=== PATIENT | male | born 1985 | race Caucasian/White ===

== ENCOUNTER 2016-03-15 10:27 | Emergency (ER) | payer BC, OTHER ==
[~2016-03-15] VITALS: Ht 172.7 cm; Wt 57.0 kg
[~2016-03-15 10:27] MED LIST: BUPR-83 PO; BUSP15TA70 PO; HYDR-3126 PO
[2016-03-15 10:29] VITALS: TEMP 36.8; Ht 172.7 cm; Wt 57.0 kg
[2016-03-15] MEDS ORDERED: ONDANSETRON INJ 2 MG/ML 2 ML VIAL IV STA (10:54)
[2016-03-15 11:17] LABS: BASO % 0.4 %; BASO ABS # 0.02 K/uL (0-0.2); COMPLETE YES; EOS % 6.9 %; HEMATOCRIT 41.2 % (42-52); LYMPH % 28.8 %; MEAN CORPUSCULAR HEMOGLOBIN 28.5 pg (25-34); MEAN CORPUSCULAR HGB CONC 35.7 g/dl (32-36); MEAN PLATELET VOLUME 8.7 fL (7.4-10.4); MONO % 5.8 %; NEUT % 58.1 %; PLATELET COUNT 211 K/uL (130-400); RED BLOOD COUNT 5.15 M/uL (4.7-6.1); WHITE BLOOD COUNT 4.52 K/uL (4.8-10.8)
[2016-03-15 11:38] LABS: URINE APPEARANCE CLEAR (CLEAR); URINE COLOR YELLOW; URINE SPECIFIC GRAVITY 1.003 (1.000-1.030); ZZUR CULT IF INDIC CLEAN CATCH NO
[2016-03-15 11:39] LABS: ALT/SGPT 24 U/L (12-78); BLOOD UREA NITROGEN 10 mg/dl (7-18); BUN/CREATININE RATIO 9.3 (10-20); CARBON DIOXIDE 26 mmol/L (21-32); CHLORIDE 104 mmol/L (98-107); GLUCOSE 115 mg/dl (70-99); POTASSIUM 4.1 mmol/L (3.5-5.1); SODIUM 141 mmol/L (136-145)
[2016-03-15 11:39] LABS: MANUAL MICROSCOPIC REQUIRED? NO; REVIEW REQ? NO; URINE BILIRUBIN NEG (NEG); URINE NITRITE NEG (NEG); UROBILINOGEN NEG (NEG)
[2016-03-15 11:42] LABS: ALKALINE PHOSPHATASE 83 U/L (45-117); AST/SGOT 23 U/L (15-37)
--- NOTE | 2016-03-15 11:42 | DIAGNOSTIC IMAGING REPORT ---
PA CHEST WITH ABDOMINAL SERIES CLINICAL HISTORY: Left lower quadrant abdominal pain. Constipation. FINDINGS: A PA chest radiograph is obtained. No prior studies are available for comparison at the time of dictation. The cardiomediastinal silhouette is unremarkable. The lungs appear hyperinflated, likely due to good inspiratory result. The lungs and pleural spaces are clear. No pneumothorax is seen. The bony thorax is grossly intact. Supine and erect abdominal radiographs are obtained. No prior studies are available for comparison at the time of dictation. There is a nonobstructed abdominal bowel gas pattern noting moderate colonic fecal retention. No intraperitoneal free air is seen. There are no abnormal abdominal calcifications. The lumbosacral spine and bony pelvis appear intact. IMPRESSION: 1. No active disease in the chest. 2. Nonobstructed abdominal bowel gas pattern noting moderate colonic fecal retention. Electronically signed by: Philippe Hamilton M.D. 03/15/2016 11:40 AM Dictated Date/Time: 03/15/2016 11:39 AM
--- NOTE | 2016-03-15 14:49 | DIAGNOSTIC IMAGING REPORT ---
ULTRASOUND TESTES AND SCROTUM CLINICAL HISTORY: Scrotal pain. COMPARISON STUDY: No priors. TECHNIQUE: Real-time, grayscale, and color Doppler sonography of the testes and scrotum is performed. Images are reviewed in the transverse and longitudinal planes. FINDINGS: The testes are normal in size and homogeneous in echotexture. The right testis measures 4.6 x 2.5 x 3.1 cm and the left testis measures 4.3 x 2.3 x 3.6 cm. No intratesticular mass is seen. Testicular blood flow is normal and symmetric. Normal Doppler waveforms are identified in both testes. The epididymal heads are normal in appearance. The right epididymal head measures 1.1 cm in length and the left epididymal head measures 1.1 cm in length. No varicocele or hydrocele is seen. IMPRESSION: Unremarkable sonographic assessment of the testes and scrotum. Electronically signed by: Philippe Hamilton M.D. 03/15/2016 2:47 PM Dictated Date/Time: 03/15/2016 2:45 PM
--- NOTE | 2016-03-15 15:03 | EMERGENCY ROOM VISIT NOTE ---
History First contact with patient: 10:40 Chief Complaint: URINARY SYMPTOMS Stated Complaint: KIDNEY PAIN, FREQ. URINATION, NAUSEA Nursing Triage Summary: pt reports constant penile burning and testicular pain ,pt denies pain or burning with urination , just urinary freq. denies ;use of restrictive device on penis [place] PAC aware History of Present Illness The patient is a 30 year old male who presents to the Emergency Room with complaints of urinary frequency that has been going on for several weeks. The patient denies any hematuria but admits to urgency and dysuria. The patient denies any penile discharge. The patient does admit that on the underside of the head of the penis it looks blue. He also admits to a throbbing pain in his scrotum which also has been going on for several weeks. The patient states he had chlamydia many years ago. He has been in a monogamous relationship with his current partner for over 2 years. She was just at her usability specialist and had complete STD testing and was negative. He does not think he has any STD. Now the patient states he has bilateral low back pain and some nausea but denies any vomiting. The patient also states that he has problems with constipation. He had a bowel movement yesterday but it was small. The patient denies any diarrhea. The patient then also started listing off multiple other complaints. He does have a appointment with his family physician, Dr. Duenas in 3 weeks. He states that he's had an itchy rash intermittently on his lower legs and on the back of his head for a year. He has not done any unnq-[id number] treatment for this. He also states that he had a prior fungal infection which she used to treat with selenium shampoo. He states that this is different. The patient also states that he has some generalized abdominal pain and would like tested for hepatitis. He states he's had problems with his liver and stomach for years. He was never diagnosed with hepatitis. 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 He has been clean for 2 years. Review of Systems 10 system review was performed and was negative unless stated otherwise history of present illness. Social History Smoking Status: Current Every Day Smoker Alcohol Use: occasionally Drug Use: heroin, other Housing Status: lives with significant other Occupation Status: unemployed Current/Historical Medications Scheduled Buprenorphine Hcl-Naloxone Hcl (Zubsolv), 5.7 MG PO BID Allergies Coded Allergies: No Known Allergies (Unverified , 03/15/16) Physical Exam Vital Signs Date Time Temp Pulse Resp B/P Pulse Ox O2 Delivery O2 Flow Rate FiO2 03/15/16 14:07 63 18 117/82 99 Room Air 03/15/16 12:32 87 18 116/80 99 Room Air 03/15/16 10:29 36.8 79 16 138/88 100 Room Air Physical Exam GENERAL: Patient is alert oriented in no acute distress. Most of his body is covered with tattoos. MENTAL Status: Alert and oriented 3. MOUTH: Mucosa is moist NECK: Supple, no lymphadenopathy noted. No carotid bruits noted. LUNGS: Clear auscultation without wheezes rales or rhonchi. CARDIAC: Regular rate and rhythm without murmur. Pulses is full and equal throughout. BACK: No CVA tenderness noted. ABDOMEN: Positive bowel sounds all 4 quadrants. Soft, mild tenderness palpation in the left lower quadrant otherwise nontender to palpation without organomegaly or masses. GENITALIA: Penis without lesion. No discharge noted. There is no discoloration of the head of the penis. Scrotum without erythema or edema. Testicles without masses or tenderness. SKIN: The patient has a small patch of erythema at the base of his skull without any vesicles or pustules noted. He has 2 small areas of raised erythema and dry skin noted on his anterior lower legs. Remainder skin without any rashes. Medical Decision & Procedures ER Provider Diagnostic Interpretation: PA CHEST WITH ABDOMINAL SERIES CLINICAL HISTORY: Left lower quadrant abdominal pain. Constipation. FINDINGS: A PA chest radiograph is obtained. No prior studies are available for comparison at the time of dictation. The cardiomediastinal silhouette is unremarkable. The lungs appear hyperinflated, likely due to good inspiratory result. The lungs and pleural spaces are clear. No pneumothorax is seen. The bony thorax is grossly intact. Supine and erect abdominal radiographs are obtained. No prior studies are available for comparison at the time of dictation. There is a nonobstructed abdominal bowel gas pattern noting moderate colonic fecal retention. No intraperitoneal free air is seen. There are no abnormal abdominal calcifications. The lumbosacral spine and bony pelvis appear intact. IMPRESSION: 1. No active disease in the chest. 2. Nonobstructed abdominal bowel gas pattern noting moderate colonic fecal retention. Electronically signed by: Philippe Hamilton M.D. 03/15/2016 11:40 AM Dictated Date/Time: 03/15/2016 11:39 AM ULTRASOUND TESTES AND SCROTUM CLINICAL HISTORY: Scrotal pain. COMPARISON STUDY: No priors. TECHNIQUE: Real-time, grayscale, and color Doppler sonography of the testes and scrotum is performed. Images are reviewed in the transverse and longitudinal planes. FINDINGS: The testes are normal in size and homogeneous in echotexture. The right testis measures 4.6 x 2.5 x 3.1 cm and the left testis measures 4.3 x 2.3 x 3.6 cm. No intratesticular mass is seen. Testicular blood flow is normal and symmetric. Normal Doppler waveforms are identified in both testes. The epididymal heads are normal in appearance. The right epididymal head measures 1.1 cm in length and the left epididymal head measures 1.1 cm in length. No varicocele or hydrocele is seen. IMPRESSION: Unremarkable sonographic assessment of the testes and scrotum. Electronically signed by: Philippe Hamilton M.D. 03/15/2016 2:47 PM Laboratory Results 03/15/16 11:00 Red Blood Count 5.15, Mean Corpuscular Volume 80.0, Mean Corpuscular Hemoglobin 28.5, Mean Corpuscular Hemoglobin Concent 35.7, Mean Platelet Volume 8.7, Neutrophils (%) (Auto) 58.1, Lymphocytes (%) (Auto) 28.8, Monocytes (%) (Auto) 5.8, Eosinophils (%) (Auto) 6.9, Basophils (%) (Auto) 0.4, Neutrophils # (Auto) 2.63, Lymphocytes # (Auto) 1.30, Monocytes # (Auto) 0.26, Eosinophils # (Auto) 0.31, Basophils # (Auto) 0.02 03/15/16 11:00 Test 03/15/16 00:00 03/15/16 11:00 Urine Color YELLOW Urine Appearance CLEAR (CLEAR) Urine pH 5.0 (4.5-7.5) Urine Specific Davidson 1.003 (1.000-1.030) Urine Protein NEG (NEG) Urine Glucose (UA) NEG (NEG) Urine Ketones NEG (NEG) Urine Occult Blood NEG (NEG) Urine Nitrite NEG (NEG) Urine Bilirubin NEG (NEG) Urine Urobilinogen NEG (NEG) Urine Leukocyte Esterase NEG (NEG) White Blood Count 4.52 K/uL (4.8-10.8) Red Blood Count 5.15 M/uL (4.7-6.1) Hemoglobin 14.7 g/dL (14.0-18.0) Hematocrit 41.2 % (42-52) Mean Corpuscular Volume 80.0 fL (80-100) Mean Corpuscular Hemoglobin 28.5 pg (25-34) Mean Corpuscular Hemoglobin Concent 35.7 g/dl (32-36) Platelet Count 211 K/uL (130-400) Mean Platelet Volume 8.7 fL (7.4-10.4) Neutrophils (%) (Auto) 58.1 % Lymphocytes (%) (Auto) 28.8 % Monocytes (%) (Auto) 5.8 % Eosinophils (%) (Auto) 6.9 % Basophils (%) (Auto) 0.4 % Neutrophils # (Auto) 2.63 K/uL (1.4-6.5) Lymphocytes # (Auto) 1.30 K/uL (1.2-3.4) Monocytes # (Auto) 0.26 K/uL (0.11-0.59) Eosinophils # (Auto) 0.31 K/uL (0-0.5) Basophils # (Auto) 0.02 K/uL (0-0.2) RDW Standard Deviation 36.7 fL (36.4-46.3) RDW Coefficient of Variation 12.6 % (11.5-14.5) Immature Granulocyte % (Auto) 0.0 % Immature Granulocyte # (Auto) 0.00 K/uL (0.00-0.02) Anion Gap 11.0 mmol/L (3-11) Est Creatinine Clear Calc Drug Dose 78.4 ml/min Estimated GFR () 103.1 Estimated GFR (Non- 89.0 BUN/Creatinine Ratio 9.3 (10-20) Calcium Level 9.0 mg/dl (8.5-10.1) Total Bilirubin 0.3 mg/dl (0.2-1) Direct Bilirubin < 0.1 mg/dl (0-0.2) Aspartate Amino Transf (AST/SGOT) 23 U/L (15-37) Alanine Aminotransferase (ALT/SGPT) 24 U/L (12-78) Alkaline Phosphatase 83 U/L (45-117) Total Protein 6.4 gm/dl (6.4-8.2) Albumin 3.9 gm/dl (3.4-5.0) Lipase 132 U/L (73-393) Hepatitis B Surface Antigen NEG (NEG) Hepatitis C Antibody NEG (NEG) Medications Administered Medications (Trade) Dose Ordered Sig/Nguyễn Route Start Time Stop Time Status Last Admin Dose Admin Ondansetron HCl (Zofran Inj) 4 mg NOW STAT IV 03/15/16 10:54 03/15/16 10:56 DC 03/15/16 11:11 4 MG ED Course The patient was evaluated. IV access was obtained. CBC and differential, renal profile, LFTs and lipase levels were ordered. Abdominal series x-ray was ordered as above with findings consistent of constipation. An ultrasound of the scrotum was ordered and interpreted by the radiologist as above without any acute findings. Hepatitis profile was ordered. The results so far are negative but there are still 2 pending tests. The patient was informed of all findings. The patient was discharged home in stable condition. Medical Decision Differential diagnosis include constipation, pyelonephritis, UTI, inguinal hernia, epididymitis, hydrocele, testicular cancer, hepatitis Skin differential include eczema, tinea corporis, cellulitis, pending versicolor Impression Primary Impression: Constipation Additional Impressions: Scrotal pain Eczema Departure Information Dispostion Home / Self-Care Condition GOOD Referrals Pablito Duenas MD (PCP) Forms HOME CARE DOCUMENTATION FORM, IMPORTANT VISIT INFORMATION Patient Instructions ED Constipation, [facility] Additional Instructions Keep scheduled appointment with Dr. Duenas in 3 weeks. Recommend over-the- counter hydrocortisone cream to the affected skin areas twice daily for 7 days. Keep areas as dry as possible. Avoid any fragrance soaps or detergents. If symptoms persist, reviewed this with Dr. Duenas.. For your constipation recommend MiraLAX daily. If your scrotal discomfort worsens, recommend follow- up with Dr. Duenas prior to your three-week appointment. Problem Qualifiers Primary Impression: Constipation Constipation type: unspecified constipation type Qualified Codes: K59.00 - Constipation, unspecified Additional Impressions: Eczema Eczema type: unspecified Qualified Codes: L30.9 - Dermatitis, unspecified
[2016-03-15 15:25] VITALS: BP 117/82; PULSE 88; O2SAT 99
[2016-10-05] MEDS ORDERED: BUPR1SUB PO (11:08)
== END 2016-03-15 15:26 | disposition home or self-care (01) ==
LOC: C.EDB 10:29 → C.EDC 15:26
DX: K59.00 Constipation, unspecified (principal); L30.9 Dermatitis, unspecified; N50.82 Scrotal pain; F17.200 Nicotine dependence, unspecified, uncomplicated

== ENCOUNTER 2016-10-05 17:44 | Emergency (ER) | payer BC ==
[~2016-10-05] VITALS: Ht 172.7 cm; Wt 55.4 kg
[~2016-10-05 17:44] MED LIST changes: -BUPR-83 PO; +BUPR1SUB PO; -BUSP15TA70 PO; -HYDR-3126 PO
[2016-10-05 17:49] VITALS: TEMP 36.8; Ht 172.7 cm; Wt 55.4 kg
[2016-10-05] MEDS ORDERED: FERR325T5 PO (18:52)
[2016-10-05] MEDS ORDERED: POLY335019 PO (18:52)
[2016-10-05] MEDS ORDERED: VNTHFA/IN INH (18:52)
[2016-10-05] MEDS ORDERED: DOCU100C PO (18:52)
[2016-10-05 18:59] LABS: BASO % 0.5 %; BASO ABS # 0.02 K/uL (0-0.2); COMPLETE YES; EOS % 5.4 %; HEMATOCRIT 43.2 % (42-52); LYMPH % 29.5 %; LYMPH ABS # 1.14 K/uL (1.2-3.4); MEAN CELL VOLUME 82.3 fL (80-100); MEAN CORPUSCULAR HEMOGLOBIN 28.2 pg (25-34); MEAN CORPUSCULAR HGB CONC 34.3 g/dl (32-36); MEAN PLATELET VOLUME 8.5 fL (7.4-10.4); NEUT % 57.6 %; PLATELET COUNT 239 K/uL (130-400); RED BLOOD COUNT 5.25 M/uL (4.7-6.1); WHITE BLOOD COUNT 3.86 K/uL (4.8-10.8)
[2016-10-05 19:08] LABS: URINE APPEARANCE CLEAR (CLEAR); URINE BILIRUBIN NEG (NEG); URINE COLOR YELLOW; URINE NITRITE NEG (NEG); URINE SPECIFIC GRAVITY 1.008 (1.000-1.030); UROBILINOGEN NEG (NEG)
[2016-10-05 19:12] LABS: PROTHROMBIN TIME (PATIENT) 11.2 SECONDS (9.0-12.0)
[2016-10-05 19:13] LABS: MANUAL MICROSCOPIC REQUIRED? NO; REVIEW REQ? NO
[2016-10-05 19:20] LABS: BUN/CREATININE RATIO 6.8 (10-20); CALCIUM 8.7 mg/dl (8.5-10.1); CREATININE 0.93 mg/dl (0.60-1.40); POTASSIUM 3.9 mmol/L (3.5-5.1)
--- NOTE | 2016-10-05 19:27 | DIAGNOSTIC IMAGING REPORT ---
CHEST 2 VIEWS ROUTINE CLINICAL HISTORY: CP eval for pna pain COMPARISON STUDY: 03/15/2016 FINDINGS: The bones soft tissues and hemidiaphragms are normal. The cardiomediastinal silhouette is normal. The lungs are clear. The pulmonary vasculature is normal. IMPRESSION: Negative chest. The above report was generated using voice recognition software. It may contain grammatical, syntax or spelling errors. Electronically signed by: Obinna Briseno M.D. 10/05/2016 7:25 PM Dictated Date/Time: 10/05/2016 7:25 PM
[2016-10-05 19:31] LABS: THYROID STIMULATING HORMONE 1.16 uIu/ml (0.300-4.500)
[2016-10-05] MEDS ORDERED: SODIUM CHLORIDE 0.9% 1000ML 1,000 ML IV STA (19:50)
[2016-10-05 19:53] LABS: LYME DISEASE AB IGG NEG (NEG); LYME DISEASE AB IGM NEG (NEG)
--- NOTE | 2016-10-05 21:47 | DIAGNOSTIC IMAGING REPORT ---
HEAD CT NONCONTRAST CT DOSE: 537.48 mGy.cm HISTORY: numbness in arms and dizzy TECHNIQUE: Multiaxial CT images of the head were performed without the use of intravenous contrast. Automated exposure control was utilized for this study. A dose lowering technique was utilized adhering to the principles of ALARA. Comparison: None. Findings: The paranasal sinuses and mastoid air cells are clear. The calvarium and skull base are intact. The ventricles and sulci are within normal limits. There is no mass, hematoma, midline shift, or acute infarct. Impression: No acute intracranial abnormality. Electronically signed by: Ubaldo Elizabeth M.D. 10/05/2016 9:45 PM Dictated Date/Time: 10/05/2016 9:41 PM
[2016-10-05 22:30] VITALS: BP 117/84; PULSE 89; O2SAT 97
--- NOTE | 2016-10-06 00:40 | EMERGENCY ROOM VISIT NOTE ---
History Report prepared by Jeb: Esperanza Weber Under the Supervision of: Dr. Kishan Paz M.D. First contact with patient: 18:09 Chief Complaint: SYNCOPE (NEAR SYNCOPE) Stated Complaint: FEELING LIKE PASSING OUT,NUMB LIMBS L ARM, DIZZY Nursing Triage Summary: pt states for past week he has been having episodes of feeling dizzy, "brain fog", arms/leg numbness patietn states symptoms last for approximately 30 minutes but c/o headache hours after episodes. pt states he was recentely diagnosed with celiaces and found out he is anemic. "I dont know it feels a little like anxiety but I don't know." History of Present Illness The patient is a 30 year old male who presents to the Emergency Room with complaints of episodes of near syncope starting several days ago. 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 He was not exerting himself or doing heavy lifting when the episode started. He started feeling like he might pass out and his arms and legs felt numb. Yesterday he had some leg aches. Today he felt a pressure in his head and heart racing. He has some aching chest pain. He denies any rash, pain or swelling to the legs, diarrhea, urinary symptoms, vomiting, or SOB. He is unsure if he has had a fever. He has chronic constipation due to being on Suboxone. He notes that he was recent diagnosed with celiac disease and has been changing his diet. He was also found to be anemic and started on iron pills. He denies any history of sudden or heart disease in his family. He has a history of panic attacks and notes that his episodes feel similar. He denies any known tick bites. He does not exercise, but notes that he does spend time running after his kids. Source of History: patient Onset: several days ago Position: other (global) Quality: other (near syncope) Timing: intermittent Associated Symptoms: + headache, + chest pain, + numbness, No SOB, No vomiting, No diarrhea, No urinary symptoms, No rash Note: Pt reports leg aches, heart racing. Pt denies pain/swelling to legs. Review of Systems See HPI for pertinent positives & negatives. A total of 10 systems reviewed and were otherwise negative. Past Medical & Surgical Medical Problems: (1) Asthma Family History Hypertension Social History Smoking Status: Current Every Day Smoker Marital Status: in relationship Housing Status: lives with significant other Occupation Status: employed Current/Historical Medications Scheduled Buprenorphine Hcl-Naloxone Hcl (Zubsolv), 5.7 MG PO BID Docusate Sodium (Stool Softener), 100 MG PO DAILY Ferrous Sulfate (Ferrous Sulfate), 325 MG PO DAILY Polyethylene Glycol 3350 (Miralax), 17 GM PO DAILY Scheduled PRN Albuterol Hfa (Ventolin Hfa), 2 PUFFS INH Q6H PRN for Shortness of Breath Allergies Coded Allergies: No Known Allergies (Unverified , 03/15/16) Physical Exam Vital Signs Date Time Temp Pulse Resp B/P (MAP) Pulse Ox O2 Delivery O2 Flow Rate FiO2 10/05/16 22:30 89 16 117/84 97 10/05/16 21:13 68 20 117/84 100 Room Air 10/05/16 19:40 73 16 107/77 96 Room Air 10/05/16 19:38 60 16 120/66 99 Room Air 63 130/78 70 107/77 10/05/16 19:18 64 10/05/16 17:49 36.8 90 18 136/81 97 Room Air Physical Exam Constitutional: Vital signs reviewed. Eyes: Pupils are equal round reactive to light. Conjunctiva are noninjected. ENT: Pharynx is clear without erythema or exudate. Mucous membranes are moist. Neck supple without meningeal signs. Respiratory: Clear to auscultation bilaterally. Breath sounds are equal bilaterally. Cardiovascular: Regular rate and rhythm. No rubs or gallops. GI: Soft, nondistended and nontender. Bowel sounds are present. Musculoskeletal: No peripheral edema. No lower extremity tenderness. Integumentary: No cyanosis. Neurological: The patient is awake and alert. No focal deficits. Psychiatric: Slightly anxious. Medical Decision & Procedures ER Provider Diagnostic Interpretation: X-ray results as stated below per interpretation by me and the radiologist. Radiology results as stated below per my review and the radiologist's interpretation: CHEST 2 VIEWS ROUTINE CLINICAL HISTORY: CP eval for pna pain COMPARISON STUDY: 03/15/2016 FINDINGS: The bones soft tissues and hemidiaphragms are normal. The cardiomediastinal silhouette is normal. The lungs are clear. The pulmonary vasculature is normal. IMPRESSION: Negative chest. The above report was generated using voice recognition software. It may contain grammatical, syntax or spelling errors. Electronically signed by: Obinna Briseno M.D. 10/05/2016 7:25 PM Dictated Date/Time: 10/05/2016 7:[address]AST CT DOSE: 537.48 mGy.cm HISTORY: numbness in arms and dizzy TECHNIQUE: Multiaxial CT images of the head were performed without the use of intravenous contrast. Automated exposure control was utilized for this study. A dose lowering technique was utilized adhering to the principles of ALARA. Comparison: None. Findings: The paranasal sinuses and mastoid air cells are clear. The calvarium and skull base are intact. The ventricles and sulci are within normal limits. There is no mass, hematoma, midline shift, or acute infarct. Impression: No acute intracranial abnormality. Electronically signed by: Ubaldo Elizabeth M.D. 10/05/2016 9:45 PM Dictated Date/Time: 10/05/2016 9:41 PM Laboratory Results 10/05/16 18:44 Red Blood Count 5.25, Mean Corpuscular Volume 82.3, Mean Corpuscular Hemoglobin 28.2, Mean Corpuscular Hemoglobin Concent 34.3, Mean Platelet Volume 8.5, Neutrophils (%) (Auto) 57.6, Lymphocytes (%) (Auto) 29.5, Monocytes (%) (Auto) 7.0, Eosinophils (%) (Auto) 5.4, Basophils (%) (Auto) 0.5, Neutrophils # (Auto) 2.22, Lymphocytes # (Auto) 1.14, Monocytes # (Auto) 0.27, Eosinophils # (Auto) 0.21, Basophils # (Auto) 0.02 10/05/16 18:44 Test 10/05/16 18:44 10/05/16 18:48 White Blood Count 3.86 K/uL (4.8-10.8) Red Blood Count 5.25 M/uL (4.7-6.1) Hemoglobin 14.8 g/dL (14.0-18.0) Hematocrit 43.2 % (42-52) Mean Corpuscular Volume 82.3 fL (80-100) Mean Corpuscular Hemoglobin 28.2 pg (25-34) Mean Corpuscular Hemoglobin Concent 34.3 g/dl (32-36) Platelet Count 239 K/uL (130-400) Mean Platelet Volume 8.5 fL (7.4-10.4) Neutrophils (%) (Auto) 57.6 % Lymphocytes (%) (Auto) 29.5 % Monocytes (%) (Auto) 7.0 % Eosinophils (%) (Auto) 5.4 % Basophils (%) (Auto) 0.5 % Neutrophils # (Auto) 2.22 K/uL (1.4-6.5) Lymphocytes # (Auto) 1.14 K/uL (1.2-3.4) Monocytes # (Auto) 0.27 K/uL (0.11-0.59) Eosinophils # (Auto) 0.21 K/uL (0-0.5) Basophils # (Auto) 0.02 K/uL (0-0.2) RDW Standard Deviation 39.1 fL (36.4-46.3) RDW Coefficient of Variation 13.0 % (11.5-14.5) Immature Granulocyte % (Auto) 0.0 % Immature Granulocyte # (Auto) 0.00 K/uL (0.00-0.02) Prothrombin Time 11.2 SECONDS (9.0-12.0) Prothromb Time International Ratio 1.0 (0.9-1.1) Activated Partial Thromboplast Time 27.0 SECONDS (21.0-31.0) Partial Thromboplastin Ratio 1.0 D-Dimer < 190 ug/L FEU (0-500) Anion Gap 4.0 mmol/L (3-11) Est Creatinine Clear Calc Drug Dose 90.2 ml/min Estimated GFR () 126.3 Estimated GFR (Non- 109.0 BUN/Creatinine Ratio 6.8 (10-20) Calcium Level 8.7 mg/dl (8.5-10.1) Total Bilirubin 0.6 mg/dl (0.2-1) Direct Bilirubin 0.1 mg/dl (0-0.2) Aspartate Amino Transf (AST/SGOT) 24 U/L (15-37) Alanine Aminotransferase (ALT/SGPT) 28 U/L (12-78) Alkaline Phosphatase 92 U/L (45-117) Total Protein 7.3 gm/dl (6.4-8.2) Albumin 4.3 gm/dl (3.4-5.0) Thyroid Stimulating Hormone (TSH) 1.160 uIu/ml (0.300-4.500) Free Thyroxine 0.95 ng/dl (0.80-1.60) Lyme Disease IgG Antibody NEG (NEG) Lyme Disease IgM Antibody NEG (NEG) Urine Color YELLOW Urine Appearance CLEAR (CLEAR) Urine pH 7.0 (4.5-7.5) Urine Specific [place] 1.008 (1.000-1.030) Urine Protein NEG (NEG) Urine Glucose (UA) NEG (NEG) Urine Ketones NEG (NEG) Urine Occult Blood NEG (NEG) Urine Nitrite NEG (NEG) Urine Bilirubin NEG (NEG) Urine Urobilinogen NEG (NEG) Urine Leukocyte Esterase NEG (NEG) Bedside Troponin I < 0.030 ng/ml (0-0.045) Laboratory results as reviewed by me. Medications Administered Medications (Trade) Dose Ordered Sig/Nguyễn Route Start Time Stop Time Status Last Admin Dose Admin Sodium Chloride 1,000 ml @ 999 mls/hr Q1H1M STAT IV 10/05/16 19:50 10/05/16 20:50 DC 10/05/16 19:50 999 MLS/HR ECG Indication: chest pain Rate (beats per minute): 71 Rhythm: normal sinus Findings: no acute ischemic change, no ectopy ED Course 1809: The patient was evaluated in room B12B. A complete history and physical exam was performed. 1944: I reevaluated the patient. I updated him on the test results. 1949: NSS 1000 ml @ 999 mls/hr IV. 2104: I reevaluated the patient. He will go for CT. 2148: Upon reevaluation, the patient appeared to have improvement of his symptoms. I discussed tonight's findings with him. He verbalized agreement of the treatment plan. He was discharged home. Medical Decision This is a 30-year-old male who presents with dizziness with near syncope, chest pain and paresthesias. Differential diagnosis includes dehydration, metabolic derangement, anemia, unstable angina, OH, pulmonary embolism, anxiety. I did perform a limited focused review of portions of the patient's old chart on the electronic medical record. The patient has had no recent pertinent visits to this hospital. I did evaluate the patient as noted above. IV access was established. 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 I did order and personally review the patient's 12-lead EKG and chest x-ray as described above. His 12- lead EKG does not demonstrate any acute ischemic changes or any evidence of prolonged QT, hypertrophy or preexcitation. His chest x-ray is unremarkable. I did order and review the patient's blood work as noted in the electronic medical record. He is not anemic. Troponin and d-dimer are both negative. He has some mild leukopenia with a normal absolute lymphocyte count. I did order a CT of the head. I did review the images myself as well as the radiology report as described above. There is no evidence of acute intracranial abnormality. Orthostatic vital signs were obtained. The patient was orthostatic and given a liter normal saline IV. I did discuss the test results with the patient. At this time the cause of his symptoms is unclear. I did recommend he follow closely with his doctor for further evaluation. He was discharged in good condition. Medication Reconcilliation Current Medication List: was personally reviewed by me Blood Pressure Screening Patient's blood pressure: Elevated blood pressure Blood pressure disposition: Referred to PCP Impression Primary Impression: Dizziness Additional Impressions: Orthostatic hypotension Paresthesias Leukopenia Acute chest pain Scribe Attestation The scribe's documentation has been prepared under my direct and personally reviewed by me in its entirety. I confirm that the note above accurately reflects all work, treatment, procedures, and medical decision making performed by me. Departure Information Dispostion Home / Self-Care Referrals Pablito Duenas MD (PCP) Forms HOME CARE DOCUMENTATION FORM, IMPORTANT VISIT INFORMATION Patient Instructions ED Chest Pain Atypical Unkn Cause, ED Dizziness UKO, ED Hypotension Orthostatic , ED Paraesthesias, [facility] Additional Instructions You have been examined and treated today on an emergency basis only. This is not a substitute for, or an effort to provide, complete comprehensive medical care. It is impossible to recognize and treat all injuries or illnesses in a single emergency department visit. It is therefore important that you follow up closely with your physician. Call as soon as possible for an appointment. Return for worsening symptoms or if you develop fever, vomiting, or any other concerning symptoms. Problem Qualifiers Additional Impressions: Leukopenia Leukopenia type: unspecified Qualified Codes: D72.819 - Decreased white blood cell count, unspecified
== END 2016-10-05 22:40 | disposition home or self-care (01) ==
LOC: C.EDB 17:46
DX: I95.1 Orthostatic hypotension (principal); R42 Dizziness and giddiness; R20.2 Paresthesia of skin; D72.819 Decreased white blood cell count, unspecified; J45.909 Unspecified asthma, uncomplicated; F17.200 Nicotine dependence, unspecified, uncomplicated; Z79.899 Other long term (current) drug therapy; Z82.49 Family history of ischemic heart disease and other diseases of the circulatory system

== ENCOUNTER 2016-11-17 14:08 | Emergency (ER) | payer BC ==
[~2016-11-17] VITALS: Ht 172.7 cm; Wt 54.7 kg
[~2016-11-17 14:08] MED LIST changes: +DOCU100C PO; +FERR325T5 PO; +POLY335019 PO; +VNTHFA/IN INH
[2016-11-17 14:12] VITALS: TEMP 37; Ht 172.7 cm; Wt 54.7 kg
--- NOTE | 2016-11-17 15:06 | EMERGENCY ROOM VISIT NOTE ---
History First contact with patient: 14:36 Chief Complaint: CARDIAC ASSESSMENT Stated Complaint: POUNDING HEART - PAIN, PAIN IN ARMS/KNEE/LEG/RASH History of Present Illness The patient is a 31 year old male with a history of drug abuse and currently on Suboxone who presents to the Emergency Room with complaints of palpitations. He notes that he has been suffering from palpitations intermittently for the past 2 months and he has been concerned that there is something "wrong with my heart , I just want to know what is wrong with me." He notes he has also been intermittently suffering from let knee pain, abdominal discomfort, dysuria and chest pain. He currently only has palpitations. He denies any illicit drug use and has been compliant with his Suboxone. He was recently here on October 05, 2016 with similar symptoms and w/u at that time was negative. He has no history of arrhythmia or thyroid disorder. He does note a lot of stress at home however does not feel this is a panic attack. Review of Systems A 10 point review of systems was negative aside from above Past Medical/Surgical History Medical Problems: (1) Asthma Family History Hypertension Social History Smoking Status: Current Every Day Smoker Alcohol Use: none Drug Use: other Marital Status: in relationship Housing Status: lives with significant other Occupation Status: employed Current/Historical Medications Scheduled Buprenorphine Hcl-Naloxone Hcl (Zubsolv), 5.7 MG PO BID Ferrous Sulfate (Ferrous Sulfate), 325 MG PO DAILY Scheduled PRN Albuterol Hfa (Ventolin Hfa), 2 PUFFS INH Q6H PRN for Shortness of Breath Physical Exam Vital Signs Date Time Temp Pulse Resp B/P (MAP) Pulse Ox O2 Delivery O2 Flow Rate FiO2 11/17/16 15:56 87 11/17/16 15:19 Room Air 11/17/16 14:12 37.0 114 20 131/82 98 Room Air Physical Exam General: ambulatory, not in acute distress, heavily tattooed Skin: no rashes noted, no suspicious lesions, no areas of inflammations/ lacerations/ erythema noted CVS: S1/ S2 noted, RRR, no rubs/ murmurs noted, no cyanosis RVS: Clear throughout bilaterally, not in acute respiratory distress, no wheezing/ rales/ crackles noted ENT: no erythema/ injection/ ulcerations noted in the pharynx, no lymphadenopathy Neck: Thyroid is not palpable, inspection WNL, full ROM of neck ABD: BSx4, no pain/ tenderness on palpation, no organomegaly, negative murphys, psoas, Rovsing, CVA tenderness MSK: inspection of all limbs WNL, motor and sensation intact in all limbs, no swelling/ pain on palpation of joints NVS: PERRL, EOMI, sensation intact in all extremities Lymph: No lymphadenopathy palpable Medical Decision & Procedures ER Provider Diagnostic Interpretation: [~ rep ct add3]] CHEST ONE VIEW PORTABLE CLINICAL HISTORY: chest pain dyspnea COMPARISON STUDY: 10/05/2016 FINDINGS: The bones soft tissues and hemidiaphragms are normal. The cardiomediastinal silhouette is normal. The lungs are clear. The pulmonary vasculature is normal. IMPRESSION: Negative chest. Laboratory Results 11/17/16 15:05 Red Blood Count 5.24, Mean Corpuscular Volume 81.7, Mean Corpuscular Hemoglobin 29.4, Mean Corpuscular Hemoglobin Concent 36.0, Mean Platelet Volume 8.6, Neutrophils (%) (Auto) 56.6, Lymphocytes (%) (Auto) 26.4, Monocytes (%) (Auto) 9.5, Eosinophils (%) (Auto) 6.8, Basophils (%) (Auto) 0.7, Neutrophils # (Auto) 2.31, Lymphocytes # (Auto) 1.08, Monocytes # (Auto) 0.39, Eosinophils # (Auto) 0.28, Basophils # (Auto) 0.03 11/17/16 15:05 Test 11/17/16 15:05 11/17/16 15:15 11/17/16 15:51 White Blood Count 4.09 K/uL (4.8-10.8) Red Blood Count 5.24 M/uL (4.7-6.1) Hemoglobin 15.4 g/dL (14.0-18.0) Hematocrit 42.8 % (42-52) Mean Corpuscular Volume 81.7 fL (80-100) Mean Corpuscular Hemoglobin 29.4 pg (25-34) Mean Corpuscular Hemoglobin Concent 36.0 g/dl (32-36) Platelet Count 214 K/uL (130-400) Mean Platelet Volume 8.6 fL (7.4-10.4) Neutrophils (%) (Auto) 56.6 % Lymphocytes (%) (Auto) 26.4 % Monocytes (%) (Auto) 9.5 % Eosinophils (%) (Auto) 6.8 % Basophils (%) (Auto) 0.7 % Neutrophils # (Auto) 2.31 K/uL (1.4-6.5) Lymphocytes # (Auto) 1.08 K/uL (1.2-3.4) Monocytes # (Auto) 0.39 K/uL (0.11-0.59) Eosinophils # (Auto) 0.28 K/uL (0-0.5) Basophils # (Auto) 0.03 K/uL (0-0.2) RDW Standard Deviation 37.0 fL (36.4-46.3) RDW Coefficient of Variation 12.4 % (11.5-14.5) Immature Granulocyte % (Auto) 0.0 % Immature Granulocyte # (Auto) 0.00 K/uL (0.00-0.02) Anion Gap 9.0 mmol/L (3-11) Est Creatinine Clear Calc Drug Dose 74.6 ml/min Estimated GFR () 102.4 Estimated GFR (Non- 88.4 BUN/Creatinine Ratio 4.5 (10-20) Calcium Level 9.2 mg/dl (8.5-10.1) Total Bilirubin 0.5 mg/dl (0.2-1) Aspartate Amino Transf (AST/SGOT) 22 U/L (15-37) Alanine Aminotransferase (ALT/SGPT) 18 U/L (12-78) Alkaline Phosphatase 78 U/L (45-117) Total Creatine Kinase 114 U/L (39-308) Creatine Kinase MB 0.7 ng/ml (0.5-3.6) Creatine Kinase MB Ratio 0.6 (0-3.0) Troponin I < 0.015 ng/ml (0-0.045) Total Protein 7.4 gm/dl (6.4-8.2) Albumin 4.5 gm/dl (3.4-5.0) Globulin 2.9 gm/dl (2.5-4.0) Albumin/Globulin Ratio 1.6 (0.9-2) Lipase 99 U/L (73-393) Thyroid Stimulating Hormone (TSH) 1.080 uIu/ml (0.300-4.500) Lyme Disease IgG Antibody NEG (NEG) Lyme Disease IgM Antibody NEG (NEG) Urine Color YELLOW Urine Appearance CLEAR (CLEAR) Urine pH 6.0 (4.5-7.5) Urine Specific [place] 1.014 (1.000-1.030) Urine Protein NEG (NEG) Urine Glucose (UA) NEG (NEG) Urine Ketones NEG (NEG) Urine Occult Blood NEG (NEG) Urine Nitrite NEG (NEG) Urine Bilirubin NEG (NEG) Urine Urobilinogen NEG (NEG) Urine Leukocyte Esterase NEG (NEG) ECG Indication: chest pain, palpitations Rate (beats per minute): 77 Rhythm: normal sinus Findings: no acute ischemic change, no ectopy Change: no significant change ED Course 1430: Patient was assessed and evaluated by resident and w/u ordered Medical Decision Differential diagnosis includes but is not limited to hyperthyroidism, anxiety, panic attack, myocardial infarction, arrhythmia, withdrawal, infection and others were entertained This is a 31 yo m that is presenting to us with recurring palpitations which had been originally worked up on October 05, 2016. The patient's work up did not reveal any leukocytosis or anemia on CBC. The CMP was WNL and no acute process noted. Troponin was negative and considering how long the patient has been suffering from symptoms an elevation would be expected if there was ischemia. The patient also has a normal TSH. Lyme was negative. lead levels as well as GC urine is pending. We discussed how there may be an element of generalized anxiety underlying these symptoms and patient may benefit from discussing stress with his PCP. Patient did not deny that this may very well be a component. We also discussed how there was no acute process and that further work up can be completed with PCP however if symptoms changed or worsened he should return to the ED. Head Trauma GCS Score: 15 Blood Pressure Screening Patient's blood pressure: Normal blood pressure Impression Primary Impression: Palpitations Additional Impression: Dizziness Departure Information Dispostion Home / Self-Care Condition GOOD Referrals Pablito Duenas MD (PCP) Patient Instructions [facility] Problem Qualifiers
[2016-11-17 15:21] LABS: BASO % 0.7 %; BASO ABS # 0.03 K/uL (0-0.2); COMPLETE YES; EOS % 6.8 %; HEMATOCRIT 42.8 % (42-52); LYMPH % 26.4 %; LYMPH ABS # 1.08 K/uL (1.2-3.4); MEAN CELL VOLUME 81.7 fL (80-100); MEAN CORPUSCULAR HEMOGLOBIN 29.4 pg (25-34); MEAN PLATELET VOLUME 8.6 fL (7.4-10.4); MONO % 9.5 %; NEUT % 56.6 %; PLATELET COUNT 214 K/uL (130-400); RED BLOOD COUNT 5.24 M/uL (4.7-6.1); WHITE BLOOD COUNT 4.09 K/uL (4.8-10.8)
--- NOTE | 2016-11-17 15:21 | DIAGNOSTIC IMAGING REPORT ---
CHEST ONE VIEW PORTABLE CLINICAL HISTORY: chest pain dyspnea COMPARISON STUDY: 10/05/2016 FINDINGS: The bones soft tissues and hemidiaphragms are normal. The cardiomediastinal silhouette is normal. The lungs are clear. The pulmonary vasculature is normal. IMPRESSION: Negative chest. The above report was generated using voice recognition software. It may contain grammatical, syntax or spelling errors. Electronically signed by: Obinna Briseno M.D. 11/17/2016 3:20 PM Dictated Date/Time: 11/17/2016 3:20 PM
[2016-11-17 15:32] LABS: URINE APPEARANCE CLEAR (CLEAR); URINE BILIRUBIN NEG (NEG); URINE COLOR YELLOW; URINE NITRITE NEG (NEG); URINE SPECIFIC GRAVITY 1.014 (1.000-1.030); UROBILINOGEN NEG (NEG); ZZUR CULT IF INDIC CLEAN CATCH NO
[2016-11-17 15:34] LABS: MANUAL MICROSCOPIC REQUIRED? NO; REVIEW REQ? NO
[2016-11-17 15:42] LABS: ALT/SGPT 18 U/L (12-78); BLOOD UREA NITROGEN 5 mg/dl (7-18); BUN/CREATININE RATIO 4.5 (10-20); CALCIUM 9.2 mg/dl (8.5-10.1); CARBON DIOXIDE 27 mmol/L (21-32); CHLORIDE 105 mmol/L (98-107); GLUCOSE 94 mg/dl (70-99); POTASSIUM 3.7 mmol/L (3.5-5.1); SODIUM 141 mmol/L (136-145)
[2016-11-17 15:53] LABS: ALB/GLOB RATIO 1.6 (0.9-2); ALKALINE PHOSPHATASE 78 U/L (45-117); AST/SGOT 22 U/L (15-37); CKMB/CK RATIO 0.6 (0-3.0)
[2016-11-17 16:18] LABS: LYME DISEASE AB IGG NEG (NEG); LYME DISEASE AB IGM NEG (NEG)
[2016-11-17 17:01] VITALS: BP 114/68; PULSE 71; O2SAT 98
--- NOTE | 2016-11-17 20:03 | EMERGENCY ROOM VISIT NOTE ---
History Report prepared by Jeb: Liz Cordoba Under the Supervision of: Dr. Loyd Shields D.O. First contact with patient: 14:35 Chief Complaint: CARDIAC ASSESSMENT Stated Complaint: POUNDING HEART - PAIN, PAIN IN ARMS/KNEE/LEG/RASH History of Present Illness The patient is a 31 year old male who presents to the Emergency Room with complaints of intermittent palpitations for the past two months. He currently rates his discomfort as a 7/10 in severity. The patient reports persistent chest pain for the past two months. Chest pain has been constant for the past 2 months. Walking slightly improves his discomfort. He additionally reports left arm pain and numbness. Patient denies swelling of calves, recent trips, history of immobilization or recent surgery, prior history of DVT, hemoptysis, history of malignancy. The patient states that he has been experiencing dizziness with his symptoms. He states that last evening he vomited. The patient reports knee pain that began two weeks ago. He states that he has had an intermittent rash, denying any recent tick bites. The patient reports a history of heroin abuse. Pt denies headache, change in vision, fevers, shortness of breath, diarrhea, pain with urination, and melena. Source of History: patient Onset: two months Position: other (global) Symptom Intensity: 7/10 Quality: other (palpitations) Timing: intermittent Associated Symptoms: + chest pain, + vomiting, + numbness (left arm), + rash Review of Systems See HPI for pertinent positives & negatives. A total of 10 systems reviewed and were otherwise negative. Past Medical & Surgical Medical Problems: (1) Asthma Family History Hypertension Social History Smoking Status: Current Every Day Smoker Marital Status: in relationship Housing Status: lives with significant other Occupation Status: employed Current/Historical Medications Scheduled Buprenorphine Hcl-Naloxone Hcl (Zubsolv), 5.7 MG PO BID Ferrous Sulfate (Ferrous Sulfate), 325 MG PO DAILY Scheduled PRN Albuterol Hfa (Ventolin Hfa), 2 PUFFS INH Q6H PRN for Shortness of Breath Allergies Coded Allergies: No Known Allergies (Unverified , 11/17/16) Physical Exam Vital Signs Date Time Temp Pulse Resp B/P (MAP) Pulse Ox O2 Delivery O2 Flow Rate FiO2 11/17/16 17:01 71 18 114/68 98 Room Air 11/17/16 15:56 87 11/17/16 15:19 Room Air 11/17/16 14:12 37.0 114 20 131/82 98 Room Air Physical Exam GENERAL: alert, sitting up in bed, well appearing, well nourished, no distress, non-toxic EYE EXAM: normal conjunctiva. OROPHARYNX: no exudate, no erythema, lips, buccal mucosa, and tongue normal and mucous membranes are moist NECK: supple, no nuchal rigidity, no adenopathy, non-tender CHEST: Reproducible left anterior chest wall pain. LUNGS: Clear to auscultation. Normal chest wall mechanics HEART: no murmurs, S1 normal and S2 normal ABDOMEN: abdomen soft, non-tender, normo-active bowel sounds, no masses, no rebound or guarding. BACK: Back is symmetrical on inspection and there is no deformity, no midline tenderness, no CVA tenderness. SKIN: Tattoos covering entire body, no rashes and no bruising UPPER EXTREMITIES: upper extremities are grossly normal. LOWER EXTREMITIES: No pitting edema. Full active and passive range of motion of bilateral knees without significant swelling or erythema. Skin is intact. NEURO EXAM: Normal sensorium, cranial nerves II-XII grossly intact, normal speech, no gross weakness of arms, no gross weakness of legs. Medical Decision & Procedures ER Provider Diagnostic Interpretation: Radiology results as stated below per my review and the radiologist's interpretation: CHEST ONE VIEW PORTABLE CLINICAL HISTORY: chest pain dyspnea COMPARISON STUDY: 10/05/2016 FINDINGS: The bones soft tissues and hemidiaphragms are normal. The cardiomediastinal silhouette is normal. The lungs are clear. The pulmonary vasculature is normal. IMPRESSION: Negative chest. The above report was generated using voice recognition software. It may contain grammatical, syntax or spelling errors. Electronically signed by: Obinna Briseno M.D. 11/17/2016 3:20 PM Dictated Date/Time: 11/17/2016 3:20 PM Laboratory Results 11/17/16 15:05 Red Blood Count 5.24, Mean Corpuscular Volume 81.7, Mean Corpuscular Hemoglobin 29.4, Mean Corpuscular Hemoglobin Concent 36.0, Mean Platelet Volume 8.6, Neutrophils (%) (Auto) 56.6, Lymphocytes (%) (Auto) 26.4, Monocytes (%) (Auto) 9.5, Eosinophils (%) (Auto) 6.8, Basophils (%) (Auto) 0.7, Neutrophils # (Auto) 2.31, Lymphocytes # (Auto) 1.08, Monocytes # (Auto) 0.39, Eosinophils # (Auto) 0.28, Basophils # (Auto) 0.03 11/17/16 15:05 Test 11/17/16 15:05 11/17/16 15:15 11/17/16 15:51 White Blood Count 4.09 K/uL (4.8-10.8) Red Blood Count 5.24 M/uL (4.7-6.1) Hemoglobin 15.4 g/dL (14.0-18.0) Hematocrit 42.8 % (42-52) Mean Corpuscular Volume 81.7 fL (80-100) Mean Corpuscular Hemoglobin 29.4 pg (25-34) Mean Corpuscular Hemoglobin Concent 36.0 g/dl (32-36) Platelet Count 214 K/uL (130-400) Mean Platelet Volume 8.6 fL (7.4-10.4) Neutrophils (%) (Auto) 56.6 % Lymphocytes (%) (Auto) 26.4 % Monocytes (%) (Auto) 9.5 % Eosinophils (%) (Auto) 6.8 % Basophils (%) (Auto) 0.7 % Neutrophils # (Auto) 2.31 K/uL (1.4-6.5) Lymphocytes # (Auto) 1.08 K/uL (1.2-3.4) Monocytes # (Auto) 0.39 K/uL (0.11-0.59) Eosinophils # (Auto) 0.28 K/uL (0-0.5) Basophils # (Auto) 0.03 K/uL (0-0.2) RDW Standard Deviation 37.0 fL (36.4-46.3) RDW Coefficient of Variation 12.4 % (11.5-14.5) Immature Granulocyte % (Auto) 0.0 % Immature Granulocyte # (Auto) 0.00 K/uL (0.00-0.02) Anion Gap 9.0 mmol/L (3-11) Est Creatinine Clear Calc Drug Dose 74.6 ml/min Estimated GFR () 102.4 Estimated GFR (Non- 88.4 BUN/Creatinine Ratio 4.5 (10-20) Calcium Level 9.2 mg/dl (8.5-10.1) Total Bilirubin 0.5 mg/dl (0.2-1) Aspartate Amino Transf (AST/SGOT) 22 U/L (15-37) Alanine Aminotransferase (ALT/SGPT) 18 U/L (12-78) Alkaline Phosphatase 78 U/L (45-117) Total Creatine Kinase 114 U/L (39-308) Creatine Kinase MB 0.7 ng/ml (0.5-3.6) Creatine Kinase MB Ratio 0.6 (0-3.0) Troponin I < 0.015 ng/ml (0-0.045) Total Protein 7.4 gm/dl (6.4-8.2) Albumin 4.5 gm/dl (3.4-5.0) Globulin 2.9 gm/dl (2.5-4.0) Albumin/Globulin Ratio 1.6 (0.9-2) Lipase 99 U/L (73-393) Thyroid Stimulating Hormone (TSH) 1.080 uIu/ml (0.300-4.500) Lyme Disease IgG Antibody NEG (NEG) Lyme Disease IgM Antibody NEG (NEG) Urine Color YELLOW Urine Appearance CLEAR (CLEAR) Urine pH 6.0 (4.5-7.5) Urine Specific [place] 1.014 (1.000-1.030) Urine Protein NEG (NEG) Urine Glucose (UA) NEG (NEG) Urine Ketones NEG (NEG) Urine Occult Blood NEG (NEG) Urine Nitrite NEG (NEG) Urine Bilirubin NEG (NEG) Urine Urobilinogen NEG (NEG) Urine Leukocyte Esterase NEG (NEG) Laboratory results per my review. ECG Indication: chest pain, palpitations Rate (beats per minute): 77 Rhythm: sinus rhythm Findings: no acute ischemic change, no ectopy, other (normal axis) ED Course ED COURSE: Vital signs were reviewed and showed tachycardic The patients medical record was reviewed The above diagnostic studies were performed and reviewed. ED treatments and interventions as stated above. 1439: The patient was evaluated in room B5. A complete history and physical examination was performed Dr. Orozco, Wood Drilling Machine Operator. 1525: The patient was evaluated in room B5. A complete history and physical examination was performed. 1632: Upon reevaluation, the patient is resting comfortably.I discussed my findings with the patient and he understands and agrees with the treatment plan. Based on the patients age, coexisting illnesses, exam and lab findings the decision to treat as an outpatient was made. The patient remained stable while under my care. The patient appeared well at the time of discharge. Medical Decision Differential diagnoses includes but is not limited to acute coronary syndrome, myocardial infarction, pericarditis, pulmonary embolus, aortic dissection, pneumonia, pneumothorax, musculoskeletal, shingles, esophageal. Patient is a 31-year-old male who presents to ER for palpitations associated with chest pain and left arm pain. Chest pain and arm pain has been present for greater than 8 hours. Troponin was negative. EKG was unremarkable. Chest pain was not pleuritic. CBC shows no anemia or leukocytosis. BMP all LFTs, bilirubin and TSH was unremarkable. Chest x-ray was unremarkable. Patient was updated in regards to his findings. Patient was feeling slightly better wall resting in the ER. Patient was seen independently of the resident. Patient was updated at bedside and discharged to follow-up with his PCP who is an appointment with tomorrow for palpitations and chest pain. Discussed with Pt concerning signs and symptoms to watch out for. Pt was instructed to follow up with their PCP and discussed with the patient their option to return to the ED at anytime for persistent or worsening symptoms. The appropriate anticipatory guidance and out-patient management, including indications for return to the emergency department, were explained at length to the patient and understood. Medication Reconcilliation Current Medication List: was personally reviewed by me Blood Pressure Screening Patient's blood pressure: Normal blood pressure Blood pressure disposition: Did not require urgent referral Impression Primary Impression: Palpitations Additional Impression: Dizziness Scribe Attestation The scribe's documentation has been prepared under my direction and personally reviewed by me in its entirety. I confirm that the note above accurately reflects all work, treatment, procedures, and medical decision making performed by me. Departure Information Dispostion Home / Self-Care Referrals Pablito Duenas MD (PCP) Forms IMPORTANT VISIT INFORMATION Patient Instructions My [facility] Additional Instructions You were evaluated in the ED for your heart racing and blood work looked good! A lead level as well as your urine levels are still pending so these can be discussed with your PCP If you have worsening or changing of symptoms please return to the ED Problem Qualifiers
[2016-11-20 13:34] LABS: CHLAMYDIA TRACH RNA*** NOT DETECTED (NOT DETECTED); GC (NEIS GONORRHOEAE)RNA** NOT DETECTED (NOT DETECTED)
[2016-11-21 14:38] LABS: LEAD BLOOD LESS THAN 1 MCG/DL (0-9)
== END 2016-11-17 17:27 | disposition home or self-care (01) ==
LOC: C.EDB 14:10
DX: R00.2 Palpitations (principal); R42 Dizziness and giddiness; J45.909 Unspecified asthma, uncomplicated; Z82.49 Family history of ischemic heart disease and other diseases of the circulatory system; F17.200 Nicotine dependence, unspecified, uncomplicated

== ENCOUNTER 2017-03-02 21:19 | Emergency (ER) | payer BC ==
[~2017-03-02] VITALS: Ht 172.7 cm; Wt 58.1 kg
[~2017-03-02 21:19] MED LIST changes: -DOCU100C PO; -POLY335019 PO
[2017-03-02 21:46] VITALS: TEMP 36.7; Ht 172.7 cm; Wt 58.1 kg
[2017-03-02 22:17] LABS: BASO % 0.4 %; BASO ABS # 0.02 K/uL (0-0.2); EOS ABS # 0.27 K/uL (0-0.5); HEMATOCRIT 42.9 % (42-52); HEMOGLOBIN 15.2 g/dL (14.0-18.0); IG# 0.01 K/uL (0.00-0.02); LYMPH % 36.1 %; LYMPH ABS # 1.63 K/uL (1.2-3.4); MEAN CELL VOLUME 81.1 fL (80-100); MEAN CORPUSCULAR HEMOGLOBIN 28.7 pg (25-34); MEAN CORPUSCULAR HGB CONC 35.4 g/dl (32-36); MONO % 9.7 %; MONO ABS # 0.44 K/uL (0.11-0.59); NEUT % 47.6 %; NEUT ABS # 2.15 K/uL (1.4-6.5); PLATELET COUNT 184 K/uL (130-400); RED CELL DISTRIBUTION WIDTH CV 12.9 % (11.5-14.5); RED CELL DISTRIBUTION WIDTH SD 37.6 fL (36.4-46.3); WHITE BLOOD COUNT 4.52 K/uL (4.8-10.8)
[2017-03-02] MEDS ORDERED: SODIUM CHLORIDE 0.9% 1000ML 1,000 ML IV STA (22:19)
[2017-03-02] MEDS ORDERED: METOCLOPRAMIDE HCL INJ 5 MG/ML 2 ML VIAL IV STA (22:19)
[2017-03-02] MEDS ORDERED: DiphenhydrAMINE HCL 50 MG/ML VIAL IV STA (22:19)
[2017-03-02] MEDS ORDERED: DICYCLOMINE HCL 10 MG/ML 2 ML AMP IM ONE (22:30)
[2017-03-02 22:37] LABS: ALBUMIN 4.3 gm/dl (3.4-5.0); CREATININE 0.94 mg/dl (0.60-1.40); POTASSIUM 3.4 mmol/L (3.5-5.1)
[2017-03-02 22:42] LABS: TOTAL PROTEIN 7.3 gm/dl (6.4-8.2)
[2017-03-03] MEDS ORDERED: OPTIRAY 320 IV PRN (00:15)
[2017-03-03] MEDS ORDERED: ONDANSETRON INJ 2 MG/ML 2 ML VIAL IV STA (00:38)
[2017-03-03 02:54] VITALS: BP 100/64; PULSE 56; O2SAT 98
[2017-03-03] MEDS ORDERED: PANT40TA PO (03:07)
[2017-03-03] MEDS ORDERED: PANTOprazole SOD 40 MG TAB PO STA (03:07)
[2017-03-03] MEDS ORDERED: MAGNESIUM CITRATE 296 ML/BTL PO ONE (03:15)
--- NOTE | 2017-03-03 05:53 | EMERGENCY ROOM VISIT NOTE ---
History First contact with patient: 22:07 Chief Complaint: ABDOMINAL PAIN Stated Complaint: ABD PAIN, FEVER Nursing Triage Summary: Pt. reports abdominal pain that has worsened over the last few days and has become localized to the right lower quadrant. Reports that he was just diagnosed with celiacs disease and states that he has made diet changes, but that made things worse. He reports a history of "stomach issues", but does not elaborate. Irregular bowel habits and issues with constipation, reports LBM as today. History of Present Illness The patient is a 31 year old male who presents to the Emergency Room with complaints of right lower quadrant pain for the past few days steadily getting worse with decreased bowel movements and nausea. Pain 5 out of 10. Nothing makes it better or worse. Pain described as crampy. It does not radiate. Patient has a history constipation. He states this is not like this. He is concerned might be his appendix. Patient denies chest pain, dyspnea, vomiting, diarrhea, back pain, penile pain, dysuria pain, urinary symptoms. He has celiac disease. No recent colonoscopy. Review of Systems See HPI for pertinent positives & negatives. A total of 10 systems reviewed and were otherwise negative. Past Medical/Surgical History Medical Problems: (1) Asthma Family History Hypertension Social History Smoking Status: Never Smoker Alcohol Use: none Drug Use: other Marital Status: in relationship Housing Status: lives with significant other Occupation Status: employed Current/Historical Medications Scheduled Buprenorphine Hcl-Naloxone Hcl (Zubsolv), 5.7 MG PO BID Ferrous Sulfate (Ferrous Sulfate), 325 MG PO DAILY Pantoprazole (Protonix), 40 MG PO DAILY Scheduled PRN Albuterol Hfa (Ventolin Hfa), 2 PUFFS INH Q6H PRN for Shortness of Breath Physical Exam Vital Signs Date Time Temp Pulse Resp B/P (MAP) Pulse Ox O2 Delivery O2 Flow Rate FiO2 03/03/17 02:54 56 16 100/64 98 03/03/17 00:56 58 18 109/64 97 03/02/17 23:33 56 18 101/60 97 Room Air 03/02/17 22:42 73 14 119/69 100 Room Air 03/02/17 21:46 36.7 85 18 129/87 100 Room Air Physical Exam VITALS: Vitals are noted on the nurse's note and reviewed by myself. Vital signs stable. GENERAL: Pleasant male with multiple tattoos, in no acute distress, nondiaphoretic, well-developed well-nourished. SKIN: The skin was without rashes, erythema, edema, or bruising. There is no tenting of the skin. Capillary reflex less than 2 seconds. HEAD: Normocephalic atraumatic. EARS: External auditory canals clear, tympanic membranes pearly veloz without erythema or effusion bilaterally. EYES: Pupils equal round and reactive to light and accommodation. Conjunctivae without injection, sclerae without icterus. Extraocular movements intact. NOSE: Patent, turbinates without inflammation or discharge. MOUTH: Mucous membranes moist. Pharynx without erythema or exudate. Uvula midline. Airway patent. Tongue does not deviate. NECK: Supple without nuchal rigidity. No lymphadenopathy. No thyromegaly. Cervical spine is nontender. No JVD. HEART: Regular rate and rhythm without murmurs gallops or rubs. LUNGS: Clear to auscultation bilaterally without wheezes, rales or rhonchi. No dullness to percussion. No retractions or accessory muscle use. ABDOMEN: Positive bowel sounds x 4. Normal tympanic percussion. Soft, tenderness to palpation right lower quadrant, no CVA tenderness without masses or organomegaly. Santos sign negative. No guarding or rebound tenderness. MUSCULOSKELETAL: No muscle atrophy, erythema, or edema noted. NEURO: Patient was alert and oriented to person place and time. Normal sensation to light and sharp touch. No focal neurological deficits. Medical Decision & Procedures Laboratory Results 03/02/17 22:03 Red Blood Count 5.29, Mean Corpuscular Volume 81.1, Mean Corpuscular Hemoglobin 28.7, Mean Corpuscular Hemoglobin Concent 35.4, Mean Platelet Volume 9.0, Neutrophils (%) (Auto) 47.6, Lymphocytes (%) (Auto) 36.1, Monocytes (%) (Auto) 9.7, Eosinophils (%) (Auto) 6.0, Basophils (%) (Auto) 0.4, Neutrophils # (Auto) 2.15, Lymphocytes # (Auto) 1.63, Monocytes # (Auto) 0.44, Eosinophils # (Auto) 0.27, Basophils # (Auto) 0.02 03/02/17 22:03 Test 03/02/17 22:03 03/02/17 22:43 White Blood Count 4.52 K/uL (4.8-10.8) Red Blood Count 5.29 M/uL (4.7-6.1) Hemoglobin 15.2 g/dL (14.0-18.0) Hematocrit 42.9 % (42-52) Mean Corpuscular Volume 81.1 fL (80-100) Mean Corpuscular Hemoglobin 28.7 pg (25-34) Mean Corpuscular Hemoglobin Concent 35.4 g/dl (32-36) Platelet Count 184 K/uL (130-400) Mean Platelet Volume 9.0 fL (7.4-10.4) Neutrophils (%) (Auto) 47.6 % Lymphocytes (%) (Auto) 36.1 % Monocytes (%) (Auto) 9.7 % Eosinophils (%) (Auto) 6.0 % Basophils (%) (Auto) 0.4 % Neutrophils # (Auto) 2.15 K/uL (1.4-6.5) Lymphocytes # (Auto) 1.63 K/uL (1.2-3.4) Monocytes # (Auto) 0.44 K/uL (0.11-0.59) Eosinophils # (Auto) 0.27 K/uL (0-0.5) Basophils # (Auto) 0.02 K/uL (0-0.2) RDW Standard Deviation 37.6 fL (36.4-46.3) RDW Coefficient of Variation 12.9 % (11.5-14.5) Immature Granulocyte % (Auto) 0.2 % Immature Granulocyte # (Auto) 0.01 K/uL (0.00-0.02) Anion Gap 6.0 mmol/L (3-11) Est Creatinine Clear Calc Drug Dose 92.7 ml/min Estimated GFR () 123.8 Estimated GFR (Non- 106.9 BUN/Creatinine Ratio 13.3 (10-20) Calcium Level 9.0 mg/dl (8.5-10.1) Total Bilirubin 0.5 mg/dl (0.2-1) Aspartate Amino Transf (AST/SGOT) 18 U/L (15-37) Alanine Aminotransferase (ALT/SGPT) 19 U/L (12-78) Alkaline Phosphatase 69 U/L (45-117) Total Protein 7.3 gm/dl (6.4-8.2) Albumin 4.3 gm/dl (3.4-5.0) Globulin 3.0 gm/dl (2.5-4.0) Albumin/Globulin Ratio 1.4 (0.9-2) Lipase 121 U/L (73-393) Urine Color DK YELLOW Urine Appearance CLEAR (CLEAR) Urine pH 5.0 (4.5-7.5) Urine Specific [place] 1.021 (1.000-1.030) Urine Protein NEG (NEG) Urine Glucose (UA) NEG (NEG) Urine Ketones TRACE (NEG) Urine Occult Blood NEG (NEG) Urine Nitrite NEG (NEG) Urine Bilirubin NEG (NEG) Urine Urobilinogen NEG (NEG) Urine Leukocyte Esterase NEG (NEG) Medications Administered Medications (Trade) Dose Ordered Sig/Nguyễn Route Start Time Stop Time Status Last Admin Dose Admin Dicyclomine HCl (Bentyl Inj) 20 mg NOW ONCE IM 03/02/17 22:30 03/02/17 22:31 DC 03/02/17 22:33 20 MG Sodium Chloride 1,000 ml @ 999 mls/hr Q1H1M STAT IV 03/02/17 22:19 03/02/17 23:19 DC 03/02/17 22:33 999 MLS/HR Metoclopramide HCl (Reglan Inj) 10 mg NOW STAT IV 03/02/17 22:19 03/02/17 22:21 DC 03/02/17 22:33 10 MG Ondansetron HCl (Zofran Inj) 4 mg NOW STAT IV 03/03/17 00:38 03/03/17 00:39 DC 03/03/17 00:54 4 MG Magnesium Citrate (Citrate Of Magnesia Soln) 300 ml NOW ONCE PO 03/03/17 03:15 03/03/17 03:16 DC 03/03/17 03:20 296 ML Pantoprazole Sodium (Protonix Tab) 40 mg NOW STAT PO 03/03/17 03:07 03/03/17 03:08 DC 03/03/17 03:19 40 MG ED Course Prior records/ancillary studies reviewed. Triage Nursing notes reviewed. Additional history obtained from friend The patient's history was concerning for abdominal pain. Differential diagnosis: Etiologies such as appendicitis, diverticulitis, PUD, biliary pathology, UTI, pancreatitis, obstruction, mesenteric ischemia, aortic pathology, infections, inflammatory bowel disease, renal colic, as well as others were entertained. Physical examination findings: As above. ER treatment provided: IV fluids, Bentyl, Zofran, magnesium citrate On reassessment the patient felt better. Diagnostics interpreted by me: The labs revealed no leukocytosis. Stable H&H Imaging studies: Acute abdominal series with no free air or obstruction or pneumothorax per my interpretation. Ultrasound unable to visualize the appendix. CT scan negative for appendicitis. Concerning for esophageal wall thickening and fecal loading Exam and history seem consistent with constipation and esophagitis. Patient was advised to take medications as directed, increase fluid and fiber intake and follow-up family care in a few days or here in the ER sooner for abdominal pain, fevers, vomiting, black or blood in the stool, worsening signs or symptoms or as needed. Patient felt much better after being medicated as above. He is well-appearing. He is a recovering heroin addict.By the evaluation outlined above emergent etiologies such as appendicitis, diverticulitis, PUD, biliary pathology, UTI, pancreatitis, obstruction, mesenteric ischemia, aortic pathology, infections, inflammatory bowel disease, renal colic, as well as others were deemed relatively unlikely. The pt informed about the findings as listed above. All questions were answered and pleased with the treatment. Return instructions were outlined and the patient was discharged in stable condition. Outpatient prescription management: Protonix Referral: The patient was referred back to their primary care physician for follow-up in 2 to 3 days for a recheck of the current condition. Case reviewed with my attending Medical Decision As above Medication Reconcilliation Current Medication List: was personally reviewed by me Blood Pressure Screening Patient's blood pressure: Normal blood pressure Impression Primary Impression: Esophagitis Additional Impression: Constipation Departure Information Dispostion Home / Self-Care Condition GOOD Prescriptions Pantoprazole (Protonix) 40 Mg Tab 40 MG PO DAILY for 14 Days, #14 TAB Prov: Carolyn Duarte PA-C 03/03/17 Forms Call Back Authorization, HOME CARE DOCUMENTATION FORM, Work Instructions, Return To Work: 1 day IMPORTANT VISIT INFORMATION Patient Instructions Esophagitis, Constipation, My [facility] Additional Instructions Esophagitis: Protonix 40 m tablet daily for next 2 weeks. Take this on an empty stomach. Try Maalox or Zantac for breakthrough symptoms for reflux. Avoid large meals. Avoid acidic foods. Rest and drink plenty of fluids as tolerated. Continue current medications. Avoid strenuous activities and anything that worsens your pain. Resume normal activities once your symptoms resolve. Return to the ER immediately for worsening or persistent chest pain, abdominal pain, black or blood in your stools, vomiting, fevers, chest pains, difficulty breathing, worsening of your condition, or as needed. Follow up with your primary physician in 2-3 days for a recheck of your current condition. Constipation: Magnesium citrate: Drink half the bottle when you get up, if you do not have a bowel movement within 6 hours then drink the rest of the bottle. You can mix this with viktoriya los 50:50. Stay near the toilet all day. Increase your fluid and fiber intake. Rest and drink plenty of fluids as tolerated. Continue current medications. Avoid strenuous activities and anything that worsens your pain. Resume normal activities once your symptoms resolve. Return to the ER immediately for worsening or persistent abdominal pain, vomiting, fevers, chest pains, difficulty breathing, worsening of your condition , or as needed. Follow up with your primary physician in 2-3 days for a recheck of your current condition. Work Instructions Return To Work: 1 day Problem Qualifiers
--- NOTE | 2017-03-03 07:05 | DIAGNOSTIC IMAGING REPORT ---
APPENDIX ULTRASOUND CLINICAL HISTORY: Right lower quadrant abdominal pain COMPARISON STUDY: No previous studies for comparison. FINDINGS: The appendix was not visualized. The examination is therefore nondiagnostic in regards to acute appendicitis. There are no abnormal fluid collections or masses visualized. IMPRESSION: Nonvisualization of the appendix. This examination is therefore nondiagnostic in regards to acute appendicitis. Electronically signed by: Kyle Sprague M.D. 03/03/2017 7:04 AM Dictated Date/Time: 03/03/2017 7:03 AM
--- NOTE | 2017-03-03 07:35 | DIAGNOSTIC IMAGING REPORT ---
PA CHEST WITH ABDOMINAL SERIES CLINICAL HISTORY: Lower abdominal pain. Constipation. FINDINGS: A PA chest radiograph is compared to study dated 11/17/2016. The cardiomediastinal silhouette is unremarkable. The lungs and pleural spaces are clear. No pneumothorax is seen. The bony thorax is grossly intact. Supine and erect abdominal radiographs are compared to study dated 03/15/2016. There is a nonobstructed abdominal bowel gas pattern. Moderate fecal retention is observed throughout the colon. No evidence of intraperitoneal free air is seen. There are no abnormal abdominal calcifications. The lumbosacral spine and bony pelvis appear intact. IMPRESSION: 1. No active disease in the chest. 2. Nonobstructed abdominal bowel gas pattern noting moderate colonic fecal retention. Electronically signed by: Philippe Hamilton M.D. 03/03/2017 7:34 AM Dictated Date/Time: 03/03/2017 7:33 AM
--- NOTE | 2017-03-03 07:38 | DIAGNOSTIC IMAGING REPORT ---
CT SCAN OF THE ABDOMEN AND PELVIS WITH IV CONTRAST CLINICAL HISTORY: Right lower quadrant abdominal pain. COMPARISON STUDY: Abdominal radiographs dated 03/02/2017. TECHNIQUE: Following the IV administration of 90 cc of Optiray 320, CT scan of the abdomen and pelvis is performed from the lung bases to the proximal femora. Images are reviewed in the axial, sagittal, and coronal planes. IV contrast was administered without complication. A dose lowering technique was utilized adhering to the principles of ALARA. CT DOSE: 263.21 mGy.cm FINDINGS: Lung bases: The heart is normal in size and without pericardial effusion. The lung bases are clear. Liver: The contrast-enhanced liver is normal in size, contour, and attenuation. There is no intrahepatic biliary ductal dilatation. The hepatic veins and portal veins are patent. Hepatic periportal edema is likely related to hydration status. Gallbladder: Unremarkable. Spleen: Normal in size and attenuation. Pancreas: Unremarkable. Adrenal glands: Unremarkable. Kidneys: The contrast enhanced kidneys are normal in size and without hydronephrosis. The kidneys enhance symmetrically. Abdominal vasculature: The abdominal aorta is normal in course and caliber. Bowel: There is moderate constipation. No bowel obstruction is seen. The appendix is well-visualized and normal. Peritoneum: There is no intraperitoneal free air or abdominal ascites. Lymphadenopathy: None. Pelvic viscera: The bladder, prostate, and seminal vesicles are normal as imaged. Skeletal structures: No lytic or blastic lesions are seen. 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 No anterolisthesis is seen at L5-S1. IMPRESSION: 1. There are no acute infectious or inflammatory findings in the abdomen or pelvis. 2. Moderate constipation. Electronically signed by: Philippe Hamilton M.D. 03/03/2017 7:37 AM Dictated Date/Time: 03/03/2017 7:34 AM
== END 2017-03-03 03:26 | disposition home or self-care (01) ==
LOC: C.EDB 21:20
DX: K20.9 Esophagitis, unspecified (principal); K59.00 Constipation, unspecified; K90.0 Celiac disease; J45.909 Unspecified asthma, uncomplicated; Z82.49 Family history of ischemic heart disease and other diseases of the circulatory system